=== PATIENT | male | born 1960 | race Caucasian/White ===

== ENCOUNTER → 2024-03-11 06:49 | Outpatient (REF) | payer BC, SELFPAY ==
[2024-03-11 07:34] LABS: % Basophils 0.6 % (0-2); % Eosinophils 3.3 % (0-6); % Immature Granulocytes 0.2 % (0-0.5); % Lymphocytes 33.3 % (20.5-51.1); % Neutrophils 51.6 % (42.2-75.2); Absolute Eosinophils 0.2 10^3/uL (0-0.7); Absolute Lymphocytes 1.8 10^3/uL (1.2-3.4); Absolute Monocytes 0.6 10^3/uL (0.1-0.6); Absolute Neutrophils 2.8 10^3/uL (1.4-6.5); Hematocrit 45.4 % (39.0-52.0); Hemoglobin 15.4 g/dL (13.0-18.0); Mean Corp Hgb Conc. 33.9 g/dL (33.0-37.0); Mean Corpuscular Hgb 31.6 pg (27.0-31.0); Nucleated Red Blood Cells % 0 % (-); Platelet Count 246 10^3/uL (130-400); Red Blood Cell Count 4.88 10^6/uL (4.70-6.10); Red Cell Dist. Width 12.5 % (11.5-14.5); White Blood Cell Count 5.4 10^3/uL (4.8-10.8)
[2024-03-11 07:40] LABS: Urine Albumin Negative (Neg - Trace); Urine Bilirubin Negative (Negative); Urine Character Clear (Clear); Urine Color Yellow; Urine Glucose Negative (Negative); Urine Ketone Negative (Negative); Urine Leukocyte 1+ (Negative); Urine Nitrite Negative (Negative); Urine Occult Blood Negative (Negative); Urine Urobilinogen Negative (Neg - 1+)
[2024-03-11 08:16] LABS: Urine Red Blood Cell 0-2 /HPF (0-2); Urine White Cell 0-2 /HPF (0-5)
[2024-03-11 09:09] LABS: Glycohemoglobin (HgbA1c) 5.7 % (4.0-5.6)
[2024-03-11 09:24] LABS: ALT (SGPT) 31 U/L (0-50); AST (SGOT) 57 U/L (17-59); Albumin 4.4 g/dl (3.5-5.0); Alkaline Phosphatase 116 U/L (38-126); Blood Urea Nitrogen 22 mg/dl (9-20); Calcium 9.8 mg/dl (8.4-10.2); Carbon Dioxide 27 mmol/L (22-30); Chloride 105 mmol/L (98-107); Glucose 106 mg/dl (70-99); HDL Cholesterol 54 mg/dl; LDL Cholesterol, Calculated 85 mg/dl; Potassium 4.6 mmol/L (3.5-5.1); Sodium 138 mmol/L (135-145); Total Bilirubin 0.4 mg/dl (0.2-1.3); Total Cholesterol 169 mg/dl (50-199); Total Protein 7.1 g/dl (6.3-8.2); Triglyceride 152 mg/dl (10-149); Very Low Density Lipoprotein 30 mg/dl (0-30); eGFR > 60.00
[2024-03-11 09:40] LABS: PSA, Total - Screen 2.74 ng/ml (0.0-4.0); TSH Reflex To Free T4 1.41 uIU/ml (0.47-4.68)
== END ==
LOC: REG 06:49
PROVIDERS: ATTENDING PHYSICIAN Family Medicine
DX: Z00.00 Encounter for general adult medical examination without abnormal findings (principal); E78.5 Hyperlipidemia, unspecified; D50.9 Iron deficiency anemia, unspecified; R73.9 Hyperglycemia, unspecified; Z12.5 Encounter for screening for malignant neoplasm of prostate
CPT/HCPCS: 36415; 80053; 80061; 81003; 81015; 83036; 84443; 85025; G0103

== ENCOUNTER 2024-08-12 09:54 | Emergency (ER) | payer BC, SELFPAY ==
[2024-08-12 10:01] VITALS: BP 169/91
[2024-08-12 11:31] VITALS: BMI 31.9
--- NOTE | 2024-08-12 11:39 | ED.GENMED ---
History of Present Illness
<Nuris Blankenship PA-C - Last Filed: 08/12/24 15:11>
General
Chief Complaint: Musculo-Skeletal Complaint
Source: patient
Exam Limitations: none
Time Seen by Provider: 08/12/24 11:16
Nursing documentation reviewed up to this point in time: agreed with
History of Present Illness
History of Present Illness:
Patient is a 64-year-old male with history hypertension presenting to the emergency department for evaluation of left chest pain following fall 4 days prior to arrival. Patient states he fell forward off a ladder approximately 4 feet on Saturday
while gardening. Patient states he landed on his chest/abdomen on the grass. Although this fall was not witnessed as patient does insist there was no loss of consciousness or head strike. Patient states he has been suffering from pain in his left
upper chest/rib area and has concern for rib fracture. Pain worse with any type of movement or inspiration. Patient denies any shortness of breath although does report taking shallow breaths due to discomfort. Patient denies specifically any
headache, episodes of nausea/vomiting, neck pain, back pain, extremity pain. Patient denies any belly pain, hemoptysis, hematuria. No numbness/tingling in lower extremities, no bowel/bladder incontinence.
Patient did take some oxycodone which she had at home without much improvement in pain. No blood thinners.
Past History
<Nuris Blankenship PA-C - Last Filed: 08/12/24 15:11>
Past History
ED Past Medical History: HTN
ED Past Surgical History: None
Social History
Tobacco: Non-smoker
Alcohol: None
Review of Systems
<Nuris Blankenship PA-C - Last Filed: 08/12/24 15:11>
Review of Systems
Allergies reviewed?: Yes
All Other Systems: ROS reviewed and negative except as documented in HPI and ROS
Phy Exam
<Nuris Blankenship PA-C - Last Filed: 08/12/24 15:11>
Physical Exam
Physical Exam:
GENERAL: No acute distress
HEENT: atraumatic, extraocular muscles intact, no signs of entrapment, dentition intact, no other obvious trauma
NECK: no midline tenderness, normal range of motion, NEXUS criteria negative, no other obvious trauma
BACK: no midline tenderness, no other obvious trauma,
CHEST: Point tenderness to left upper chest wall with small healing ecchymoses, no flail segment, no subcutaneous emphysema, no other obvious trauma
LUNGS: clear to auscultation bilaterally
CARDIOVASCULAR: regular rate and rhythm
ABDOMEN: soft, non-tender, no masses, no ecchymosis to abdomen or back, no CVA tenderness, no other obvious trauma
PELVIS: stable, no obvious injury
EXTREMITIES: Bilateral upper and lower extremities atraumatic and nontender with full range of motion, distal pulses intact, no other obvious trauma
NEUROLOGIC: awake, alert x 3, no focal deficits
Course
<Nuris Blankenship PA-C - Last Filed: 08/12/24 15:11>
Orders/Labs/Results
Orders:
Orders
08/12/24 10:04
Electrocardiogram (*1) Urgent
Reason for Study: Other
Other Reason for Exam: injury, fall on chest
08/12/24 10:06
EKG- Treatment ONCE
08/12/24 10:14
CR Ribs-left 3 Vw W/pa Chest Urgent
Comment:
Reason For Exam: Rib injury/ fall off ladder
08/12/24 11:31
Lidocaine [Lidocaine 4% Patch] 1 patch TOPICAL NOW STA
Apply Lidocaine patch(s) to:: Left upper chest
08/12/24 11:35
Ketorolac [Toradol] 15 mg IM NOW STA
08/12/24 12:11
Incentive Spirometry [Rx Incentive Spirometry] [RESP] Urgent
Frequency: q1h while awake
Vital Signs
Initial and Last Documented VS:
Initial Vital Signs
Temp Pulse Resp BP Pulse Ox
99.2 F 93 18 169/91 96
08/12/24 10:01 08/12/24 10:01 08/12/24 10:01 08/12/24 10:01 08/12/24 10:01
Last Documented Vital Signs
Temp Pulse Resp BP Pulse Ox
99.2 F 78 16 150/88 97
08/12/24 10:01 08/12/24 12:20 08/12/24 12:20 08/12/24 12:20 08/12/24 12:20
<Dominick Ragsdale, DO - Last Filed: 08/12/24 11:59>
Orders/Labs/Results
Orders:
Orders
08/12/24 10:04
Electrocardiogram (*1) Urgent
Reason for Study: Other
Other Reason for Exam: injury, fall on chest
08/12/24 10:06
EKG- Treatment ONCE
08/12/24 10:14
CR Ribs-left 3 Vw W/pa Chest Urgent
Comment:
Reason For Exam: Rib injury/ fall off ladder
08/12/24 11:31
Lidocaine [Lidocaine 4% Patch] 1 patch TOPICAL NOW STA
Apply Lidocaine patch(s) to:: Left upper chest
08/12/24 11:35
Ketorolac [Toradol] 15 mg IM NOW STA
08/12/24 12:11
Incentive Spirometry [Rx Incentive Spirometry] [RESP] Urgent
Frequency: q1h while awake
Vital Signs
Initial and Last Documented VS:
Initial Vital Signs
Temp Pulse Resp BP Pulse Ox
99.2 F 93 18 169/91 96
08/12/24 10:01 08/12/24 10:01 08/12/24 10:01 08/12/24 10:01 08/12/24 10:01
Last Documented Vital Signs
Temp Pulse Resp BP Pulse Ox
99.2 F 78 16 150/88 97
08/12/24 10:01 08/12/24 12:20 08/12/24 12:20 08/12/24 12:20 08/12/24 12:20
<Nuris Blankenship PA-C - Last Filed: 08/12/24 15:11>
MDM/Problems Addressed
Differential Diagnosis Includes:
Not limited to: Rib fracture, rib contusion, pneumothorax, hemothorax, etc.
MDM/Problems Addressed:
64 y.o male with left chest wall pain following fall 4 days ago. No true shortness of breath. No head strike or loss of consciousness. No headache, vomiting, dizziness, neck pain. No other complaints. Vital signs are stable. Physical exam as
above. No signs of head or neck trauma. Heart regular rate and rhythm. Patient has clear breath sounds bilaterally. He does have reproducible tenderness along left upper chest with mild healing ecchymoses. No crepitus or flail chest. Pelvis is
stable. No spinal tenderness. No evidence of traumatic injuries to upper or lower extremities. Patient is perfusing well with great distal pulses. He rib series and chest x-ray was obtained which appears to show a nondisplaced third rib
fracture. No evidence of pneumothorax or hemothorax. Official read pending. Patient was given a dose of IM Toradol and lidocaine patch 1 emergency department. He does report somewhat improvement in symptoms.
No indication for further imaging at this time. No signs of other traumatic injuries. Will treat for possible rib fracture. Will provide incentive spirometer to use at home. Recommend NSAIDs, Tylenol, lidocaine patch. Return precaution
discussed at length. Patient will follow-up with PCP in few days to ensure improving/possible repeat imaging. Patient stable for discharge. Patient seen with attending physician
Chronic conditions affecting care:
Hypertension
Acute Exacerbation and/or Progression of Chronic Illness:
Acutely hypertensive
<Nuris Blankenship PA-C - Last Filed: 08/12/24 15:11>
*Radiology
Radiology exam reviewed: preliminary read by ED provider (Nondisplaced rib fracture of left third rib)
*Pulse Oximetry
Patient hypoxic: no
*EKG
Interpreted by ED Provider?: Yes
EKG Intrepretation Date: 08/12/24
Interpretation: normal
Comparison EKG: no changes
Heart Rate: 79
Rate: normal
Rhythm: sinus
[place]: normal axis
Interval: normal interval
QRS Pattern: normal QRS
Ischemia: no ischemia
*Gas Plant Operator Interpretation
Rate: Gas Plant Operator- N/A
*Critical Care Note
Total Time (30-74mins, 75-104mins- exclusive of procedures): Not Applicable
ED Attending Note
<Nuris Blankenship PA-C - Last Filed: 08/12/24 15:11>
-
Portions of this chart may have been created with voice recognition software.� Occasional wrong word or��sound alike� substitutions may have occurred due to the inherent limitations of voice recognition software.
<Dominick Ragsdale, - Last Filed: 08/12/24 11:59>
ED Attending Note
Patient seen and examined by attending physician: Yes
I performed a history and physical exam of patient and discussed management with resident, I reviewed resident's note and agree with documented findings and plan of care.: Yes
ED Attending Note:
I reviewed and agree with history and treatment plan by Nuris Batres. My exam revealed 64-year-old male with mild left lateral chest bruising upper, no other signs of trauma. Chest x-ray with possible second rib fracture. No pneumothorax.
Stable for discharge.
Discharge Plan
Departure
Patient Disposition: Home (Routine Discharge)
Date of Disposition: 08/12/24
Time of Disposition: 12:10
Patient with high blood pressure during this ER visit?: Yes
Condition: Good
Covid-19: Not Applicable
Discharge Problem:
Left rib fracture
Instructions: How to Use an Incentive Spirometer, Rib fractures in adults, BLOOD PRESSURE
Prescriptions:
No Action
atorvastatin 10 mg Tablet
10 mg PO HS
chlorthalidone 25 mg Tablet
25 mg PO DAILY
amlodipine 10 mg Tablet
10 mg PO DAILY
duloxetine 60 mg Capsule,Delayed Release(Dr/Ec)
60 mg PO DAILY
tamsulosin [Flomax] 0.4 mg Capsule
0.4 mg PO DAILY
ascorbic acid (vitamin C) [Vitamin C] 500 mg Tablet
500 mg PO DAILY
Men's 50 Plus Daily Formula 400-20-370 mcg Tablet
1 tab PO DAILY
omeprazole 20 mg Tablet,Delayed Release (Dr/Ec)
20 mg PO BID
mupirocin 2 % ointment
1 applic topical BID Qty: 1 0RF
Patient Comments:
last dose was last evening, 12/31/22
valsartan 160 mg Tablet
160 mg PO BID Qty: 0 0RF
Rx Instructions:
hold systolic blood pressure <130 if taking Percacet
oxycodone-acetaminophen [Percocet] 10-325 mg tablet
1 tab PO Q6H PRN (Reason: moderate-severe pain) Qty: 30 0RF
Rx Instructions:
1/2 tab moderate pain or 1 if severe
Rx Marleny Palmer
tizanidine 2 mg capsule
2 mg PO TID Qty: 30 0RF
Rx Instructions:
*Rx provided by Jodi Palmer
Referrals:
Dashawn Zacarias, [Family Provider] - Follow up in 5-7 days
Stand Alone Forms: Return to Work
Activity Restrictions/Additional Instructions:
RETURN TO THE EMERGENCY DEPARTMENT WITH FEVERS, CHILLS, PRODUCTIVE COUGH, COUGHING UP BLOOD, SHORTNESS OF BREATH, INTRACTABLE PAIN, OR ANY OTHER CONCERNS
-As discussed�you should use Tylenol and/or Aleve at home as needed for discomfort. You should apply lidocaine patches which you can buy [id number].
-You should use the incentive spirometer approximately 10 times every 1-2 hours when you are awake.
-You should avoid heavy lifting for the next 2 weeks
-Follow-up with your primary care in about a week for further evaluation/management to ensure that symptoms are improving.
Monitor your symptoms closely and return to the emergency department with any acute worsening/new symptoms
Interventions
Interventions:
*Risk Screen - Suicide Last Done: 08/12/24 10:01
*General Assessment Last Done: 08/12/24 10:01
*Neglect/Abuse Screening Last Done: 08/12/24 10:01
ED- Fall Risk Assessment Last Done: 08/12/24 11:31
*ED COVID-19 Vaccine History Last Done: 08/12/24 11:31
*Nursing Disposition Last Done: 08/12/24 12:20
ED-Musculoskeletal Assessment Last Done: 08/12/24 11:31
Discharge Date and Time
Discharge Date/Time: 08/12/24 12:20
Print Language: ISRAELI
[2024-08-12 11:49] VITALS: BP 150/88
[2024-08-12] MEDS: TORADOL 15 MG IM (11:50)
[2024-08-12] MEDS: LIDOCAINE 4% PATCH 1 PATCH TOPICAL (11:50)
[2024-08-12 12:20] VITALS: BP 150/88
--- NOTE | 2024-08-12 12:27 | EDRN ---
Reviewed discharge instructions with patient. Verbalized understanding. Patient demonstrated proper use of incentive spirometer. Ambulated with steady gait to the [facility].
== END 2024-08-12 12:20 | disposition home or self-care (01) ==
LOC: EMR 09:54
PROVIDERS: EMERGENCY PHYSICIAN Emergency Medicine; FAMILY PHYSICIAN Family Medicine
DX: S22.32XA Fracture of one rib, left side, initial encounter for closed fracture (principal); S20.212A Contusion of left front wall of thorax, initial encounter; W11.XXXA Fall on and from ladder, initial encounter; Y93.H2 Activity, gardening and landscaping; I10 Essential (primary) hypertension; N40.0 Benign prostatic hyperplasia without lower urinary tract symptoms; M19.90 Unspecified osteoarthritis, unspecified site; M48.00 Spinal stenosis, site unspecified; F32.A Depression, unspecified; Z87.891 Personal history of nicotine dependence; Z85.828 Personal history of other malignant neoplasm of skin; Z88.6 Allergy status to analgesic agent; Z88.8 Allergy status to other drugs, medicaments and biological substances; Z91.048 Other nonmedicinal substance allergy status
CPT/HCPCS: 99284; 96372; 71101; 93005

== ENCOUNTER → 2024-12-18 06:55 | Outpatient (REF) | payer BC, SELFPAY | LOC: RAD 06:55 | PROVIDERS: ATTENDING PHYSICIAN Physician Assistant Surgical; FAMILY PHYSICIAN Family Medicine | DX: M79.672 Pain in left foot (principal) | CPT/HCPCS: 73630 ==

== ENCOUNTER → 2024-12-22 06:46 | Outpatient (REF) | payer BC, SELFPAY ==
[2024-12-22 08:44] LABS: % Basophils 0.4 % (0-2); % Eosinophils 3.8 % (0-6); % Lymphocytes 32.8 % (20.5-51.1); % Monocytes 11.2 % (1.7-9.3); % Neutrophils 51.8 % (42.2-75.2); Absolute Eosinophils 0.2 10^3/uL (0-0.7); Absolute Lymphocytes 1.7 10^3/uL (1.2-3.4); Absolute Monocytes 0.6 10^3/uL (0.1-0.6); Absolute Neutrophils 2.7 10^3/uL (1.4-6.5); Hematocrit 45.2 % (39.0-52.0); Hemoglobin 15.3 g/dL (13.0-18.0); Mean Corp Hgb Conc. 33.8 g/dL (33.0-37.0); Mean Corpuscular Hgb 31.1 pg (27.0-31.0); Mean Corpuscular Volume 91.9 fL (80.0-94.0); Mean Platelet Volume 10.6 fL (7.4-10.4); Nucleated Red Blood Cells % 0 % (-); Platelet Count 236 10^3/uL (130-400); Red Blood Cell Count 4.92 10^6/uL (4.70-6.10); Red Cell Dist. Width 12.6 % (11.5-14.5); White Blood Cell Count 5.3 10^3/uL (4.8-10.8)
[2024-12-22 08:56] LABS: Erythrocyte Sed Rate 12 mm/hour (0-20)
[2024-12-22 12:15] LABS: Rheumatoid Agglutinin Less Than 10 IU (<10 IU)
[2024-12-24 00:57] LABS: CCP Antibody IgG/IgA 2 Units (0-19)
[2024-12-24 01:52] LABS: ANA, IgG Reflex to HEp-2 None Detected (None Detected)
== END ==
LOC: REG 06:46
PROVIDERS: ATTENDING PHYSICIAN Physician Assistant Surgical
DX: M25.50 Pain in unspecified joint (principal); R21 Rash and other nonspecific skin eruption
CPT/HCPCS: 36415; 85025; 85652; 86038; 86140; 86200; 86430

== ENCOUNTER → 2025-03-23 07:56 | Outpatient (REF) | payer OTHER, SELFPAY ==
[2025-03-23 09:26] LABS: Urine Albumin Negative (Neg - Trace); Urine Bilirubin Negative (Negative); Urine Character Clear (Clear); Urine Color Yellow; Urine Glucose Negative (Negative); Urine Ketone Negative (Negative); Urine Leukocyte Negative (Negative); Urine Nitrite Negative (Negative); Urine Occult Blood Negative (Negative); Urine Specific Gravity 1.015 (<1.030); Urine Urobilinogen Negative (Neg - 1+); Urine pH 6.5 (5.0-9.0)
[2025-03-23 09:49] LABS: Glycohemoglobin (HgbA1c) 5.3 % (4.0-5.6)
[2025-03-23 09:55] LABS: ALT (SGPT) 27 U/L (0-50); AST (SGOT) 44 U/L (17-59); Albumin 3.7 g/dl (3.5-5.0); Alkaline Phosphatase 90 U/L (38-126); Blood Urea Nitrogen 20 mg/dl (9-20); Calcium 9.2 mg/dl (8.4-10.2); Carbon Dioxide 29 mmol/L (22-30); Chloride 106 mmol/L (98-107); Glucose 104 mg/dl (70-99); HDL Cholesterol 53 mg/dl; LDL Cholesterol, Calculated 82 mg/dl; Potassium 4.8 mmol/L (3.5-5.1); Sodium 141 mmol/L (135-145); Total Bilirubin 0.5 mg/dl (0.2-1.3); Total Cholesterol 151 mg/dl (50-199); Total Protein 6.4 g/dl (6.3-8.2); Triglyceride 84 mg/dl (10-149); Very Low Density Lipoprotein 16 mg/dl (0-30); eGFR > 60.00
[2025-03-23 11:01] LABS: PSA, Total - Screen 2.59 ng/ml (0.0-4.0); TSH Reflex To Free T4 0.94 uIU/ml (0.47-4.68)
== END ==
LOC: REG 07:56
PROVIDERS: ATTENDING PHYSICIAN Family Medicine
DX: R73.09 Other abnormal glucose (principal); Z13.220 Encounter for screening for lipoid disorders; Z13.1 Encounter for screening for diabetes mellitus; Z12.5 Encounter for screening for malignant neoplasm of prostate; Z13.29 Encounter for screening for other suspected endocrine disorder; R79.89 Other specified abnormal findings of blood chemistry; N39.0 Urinary tract infection, site not specified
CPT/HCPCS: 36415; 80053; 80061; 81003; 83036; 84443; G0103

== ENCOUNTER 2025-04-16 06:21 | Outpatient (RCR) | payer MEDICARE, OTHER, SELFPAY | END 2025-04-16 23:59 | disposition home or self-care (01) | LOC: RPT 06:21 | PROVIDERS: ATTENDING PHYSICIAN Physician Assistant Surgical; FAMILY PHYSICIAN Family Medicine | DX: M54.16 Radiculopathy, lumbar region (principal); M62.81 Muscle weakness (generalized); Z98.890 Other specified postprocedural states; Z73.6 Limitation of activities due to disability | CPT/HCPCS: 97110; 97162; 97530 ==

== ENCOUNTER 2025-05-11 10:55 | Outpatient (RCR) | payer MEDICARE, OTHER, SELFPAY | END 2025-05-11 23:59 | disposition home or self-care (01) | LOC: RPT 10:55 | PROVIDERS: ATTENDING PHYSICIAN Physician Assistant Surgical; FAMILY PHYSICIAN Family Medicine | DX: M54.16 Radiculopathy, lumbar region (principal); M62.81 Muscle weakness (generalized); Z98.890 Other specified postprocedural states; Z73.6 Limitation of activities due to disability | CPT/HCPCS: 97010; 97110; 97112; 97140 ==

== ENCOUNTER → 2025-05-17 12:21 | Outpatient (REF) | payer MEDICARE, OTHER, SELFPAY ==
[2025-05-17 14:55] LABS: ALT (SGPT) 20 U/L (0-50); AST (SGOT) 44 U/L (17-59); Albumin 4.2 g/dl (3.5-5.0); Alkaline Phosphatase 102 U/L (38-126); Blood Urea Nitrogen 18 mg/dl (9-20); Calcium 9.6 mg/dl (8.4-10.2); Carbon Dioxide 27 mmol/L (22-30); Chloride 109 mmol/L (98-107); Glucose 102 mg/dl (70-99); Potassium 4.7 mmol/L (3.5-5.1); Sodium 142 mmol/L (135-145); Total Bilirubin 0.4 mg/dl (0.2-1.3); Total Protein 6.9 g/dl (6.3-8.2); eGFR > 60.00
== END ==
LOC: REG 12:21
PROVIDERS: ATTENDING PHYSICIAN Physician Assistant Surgical; FAMILY PHYSICIAN Family Medicine
DX: M54.16 Radiculopathy, lumbar region (principal); Z98.1 Arthrodesis status
CPT/HCPCS: 36415; 80053

== ENCOUNTER → 2025-07-29 07:49 | Outpatient (REF) | payer MEDICARE, OTHER, SELFPAY | LOC: PAVMRI 07:49 | PROVIDERS: ATTENDING PHYSICIAN Physician Assistant Surgical; FAMILY PHYSICIAN Family Medicine | DX: M54.16 Radiculopathy, lumbar region (principal); Z98.1 Arthrodesis status | CPT/HCPCS: 72158; A9575 ==

== ENCOUNTER → 2025-09-01 14:14 | Outpatient (REF) | payer MEDICARE, OTHER, SELFPAY | LOC: HWRAD 14:14 | PROVIDERS: ATTENDING PHYSICIAN Family Medicine | DX: R93.89 Abnormal findings on diagnostic imaging of other specified body structures (principal); N13.5 Crossing vessel and stricture of ureter without hydronephrosis | CPT/HCPCS: 76775 ==

== ENCOUNTER → 2025-09-15 10:22 | Outpatient (REF) | payer MEDICARE, OTHER, SELFPAY ==
[2025-09-15 12:19] LABS: Blood Urea Nitrogen 28 mg/dl (9-20); Calcium 9.7 mg/dl (8.4-10.2); Carbon Dioxide 22 mmol/L (22-30); Chloride 102 mmol/L (98-107); Glucose 100 mg/dl (70-99); Potassium 4.4 mmol/L (3.5-5.1); Sodium 133 mmol/L (135-145); eGFR > 60.00
== END ==
LOC: REG 10:22
PROVIDERS: ATTENDING PHYSICIAN Urology
DX: N13.30 Unspecified hydronephrosis (principal)
CPT/HCPCS: 36415; 80048

== ENCOUNTER → 2025-09-27 07:17 | Outpatient (REF) | payer MEDICARE, OTHER, SELFPAY | LOC: RAD 07:17 | PROVIDERS: ATTENDING PHYSICIAN Urology; FAMILY PHYSICIAN Family Medicine | DX: N13.30 Unspecified hydronephrosis (principal) | CPT/HCPCS: 74178; Q9967 ==